=== PATIENT | female | born 1985 | race Caucasian/White ===

== ENCOUNTER 2016-09-19 17:06 | Emergency (ER) | payer OTHER ==
[~2016-09-19] VITALS: Ht 154.9 cm; Wt 104.0 kg
[~2016-09-19 17:06] MED LIST: ALBU17AE12
[2016-09-19 17:08] VITALS: Ht 154.9 cm; Wt 104.0 kg
--- NOTE | 2016-09-19 18:45 | ERD ---
ER Documentation Chief Complaint Date/Time DATE: 09/19/16 TIME: 18:38 Chief Complaint FEELING PALPITATIONS ON AND OFF X 1 WEEK , 32 WEEKS PREG HPI This pleasant 30-year-old female presents to emergency department with assessment for assessment of feeling her heart racing intermittently on and off for the last week. Patient is 32 weeks , -00. Reports that she has told her INDUSTRY SEGMENT SPECIALIST about symptoms was instructed to come to emergency department. Patient last felt palpitations while sitting in exam room. Patient reports that palpitations occur anytime of the day or night with or without activity. She reports intermittent dizziness, shortness of breath, denies chest pain. Patient's current vital signs are stable with a heart rate of 103, blood pressure 117/68 and respirations 18 she is satting 97% on room air. Patient's family history for coronary artery disease include grandmother AMI with age over 60, both mother and grandmother diabetes mellitus. Denies history of gestational diabetes herself thyroid disease. Patient reports very limited caffeine, states she was drinking "[employer] green peas" she quit drinking teas 2 weeks ago. She is on no routine medication other than vitamins. Patient reports no change in baby kick count. Patient reports no vaginal bleeding, vaginal discharge, or abdominal discomfort. She is alert oriented in no acute distress while sitting in exam room with nurse practitioner. ROS All systems reviewed and are negative except as per history of present illness. Medications Home Meds Reported Medications Multivit/Min/Fol Ac/Iron/Pren* ( S*) 1 Tab Tab, 1 TAB PO DAILY, TAB 09/19/16 Discontinued Reported Medications Albuterol (Proventil) 17 Gm Aerosol 08/03/09 Allergies Allergies: Coded Allergies: No Known Allergy (Verified , 09/19/16) PMhx/Soc History of Surgery: Yes (LEEP PROCEDURE FOR CERVICAL CANCER) Anesthesia Reaction: No Hx Neurological Disorder: No Hx Respiratory Disorders: Yes (ASTHMA) Hx Cardiac Disorders: No Hx Psychiatric Problems: No Hx Miscellaneous Medical Probl: No Hx Alcohol Use: No Hx Substance Use: No Hx Tobacco Use: No Smoking Status: Never smoker Physical Exam Vitals Vital Signs Date Time Temp Pulse Resp B/P Pulse Ox O2 Delivery O2 Flow Rate FiO2 09/19/16 17:08 98.1 103 18 117/68 97 Vitals stable, triage notes reviewed Physical Exam Const: No acute distress Head: Atraumatic Eyes: Normal Conjunctiva, PERRLA, EOMI ENT: Normal External Ears, Nose and Mouth. Neck: Full range of motion.. Thyroid midline, no nodules, no JVD Resp: Chest rises and falls symmetrically, clear to auscultation bilaterally no rales wheezes or rhonchi with forced expiration Cardio: Sinus tachycardia auscultated at a rate of 110. S1-S2, no S3-S4, no murmur Abd: Gravidas abdomen Skin: Capillary refill brisk less than 2 second Back: Ext: Neur: Awake and alert Psych: Normal Mood and Affect Result Diagram: 09/19/16 1845 09/19/16 1845 Results 24 hrs Laboratory Tests Test 09/19/16 18:45 White Blood Count 13.110^3/ul Red Blood Count 4.2010^6/ul Hemoglobin 11.7g/dl Hematocrit 35.7% Mean Corpuscular Volume 85.0fl Mean Corpuscular Hemoglobin 27.9pg Mean Corpuscular Hemoglobin Concent 32.8g/dl Red Cell Distribution Width 13.8% Platelet Count 76303^3/UL Mean Platelet Volume 10.9fl Neutrophils % 73.0% Lymphocytes % 15.2% Monocytes % 7.4% Eosinophils % 3.8% Basophils % 0.3% Nucleated Red Blood Cells % 0.0/100WBC Neutrophils # 9.610^3/ul Lymphocytes # 2.010^3/ul Monocytes # 1.010^3/ul Eosinophils # 0.510^3/ul Basophils # 0.010^3/ul Nucleated Red Blood Cells # 0.010^3/ul Prothrombin Time 12.6Sec Prothrombin Time Ratio 1.0 INR International Normalized Ratio 0.94 Activated Partial Thromboplast Time 26.3Sec Sodium Level 133mmol/L Potassium Level 4.2mmol/L Chloride Level 107mmol/L Carbon Dioxide Level 19mmol/L Anion Gap 11 Blood Urea Nitrogen 10mg/dl Creatinine 0.45mg/dl Glucose Level 117mg/dl Calcium Level 8.7mg/dl Magnesium Level 1.7mg/dl Troponin I < 0.012ng/ml Thyroid Stimulating Hormone (TSH) 1.210MIU/L Free Thyroxine Index 2.36ug/ml Thyroxine (T4) 12.1ug/dl Triiodothyronine (T3) Uptake 19.5% Interpretation text CBC shows no evidence of hemorrhage or WBCs are 13.1 Chemistry shows no evidence of significant renal insufficiency, sodium low at 133 Liver function tests shows no evidence of acute biliary or hepatic dysfunction Coagulation study showed no concerning coagulpathy Thyroid panel normal no evidence of hyper or hypothyroidism Magnesium normal no hypo-magnesium Cardiac biomarkers show no evidence of acute myocardial injury or coronary ischemia Procedures/MDM EKG read by me: At 1715 Rate/Rhythm: Regular rate and ventricular rhythm at 98 bpm Intervals: Normal Impression: No evidence of ischemia or arrhythmia Repeat EKG was done at 1929 EKG read by me: Rate/Rhythm: Regular rate and ventricular rhythm of 100 bpm Intervals: Normal Impression: No evidence of ischemia or arrhythmia This pleasant 30-year-old 32 weeks female presenting to emergency department today with reports of palpitations, shortness of breath with palpitations intermittently for the last week. 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 Patient is experiencing palpitations while in emergency department. Serial EKGs shows sinus rhythm at ventricular rates 98 bpm and 100 bpm. Patient denies chest pain or shortness of breath at this time is satting 97-98% on room air. Laboratory testing includes CBC with elevated WBCs, electrolytes with low sodium at 133. TSH, and troponin both are normal. Case discussed with supervising physician , Patient will be transferred to labor and delivery for 4 hours of heart tone monitoring. Labor and delivery called, spoke to the charge nurse Priscila, asked to discharge patient, patient will be readmitted in labor and delivery. I feel patient is appropriate for admission to labor and delivery for heart tone monitoring after safely evaluating palpitations. Patient can follow- up with her primary care provider for any further evaluation of palpitations. Patient has no evidence of cardiac arrhythmia, electrolyte dysfunction, or thyroid disease. Patient is satting 98% on room air without chest pain low suspicion for pulmonary embolism, pulmonary CT is not indicated at this time. I feel the patient is stable for discharge at this time and readmission to labor and delivery I have discussed results, examination findings, the treatment plan with the patient and family present prior to discharge. Indications for emergent reevaluation, side effects of medication were also discussed. All questions were answered. Patient verbalizes understanding and agrees with plan of care. Departure Diagnosis: Primary Impression: Palpitations Additional Impression: 32 weeks gestation of Condition: Good Patient Instructions: Palpitations Referrals: [facility] Comments Thank you for for coming to [facility] for your care today. Please ask your nurse or provider if you have questions about your care today and do not leave until all your questions have been answered. Please use any medications given as directed and follow-up with your doctor (or the doctor you were referred to) in the next 2-3 days. If you do not have a primary care doctor you may follow up at the [facility] (listed below). You may also use motrin and tylenol as needed for fever and/or pain unless instructed otherwise by your provider or nurse. Indications for more urgent follow-up have been discussed, but you may return to the Emergency Department at ANY time for any worrisome or worsening symptoms. If you have abdominal pain, please know that no test or exam you received is perfect and you should follow up within 8 hours for continued pain. If you had any imaging studies today, such as an X-Ray or CT Scan, these studies will be reviewed later by a radiologist. You will be called if there are important findings that were not identified today, so make sure the contact information you provided at registration is correct. If you received any narcotic pain control medicine today, such as Vicodin, Morphine or Dilaudid, your coordination and judgment may be affected for a number of hours. Please do not drive or operate heavy machinery, and you may want someone to assist you at home. If you were given a prescription for narcotic medication, be aware that it is very addictive- use sparingly and only if necessary. GISELLA LAZO Sep 19, 2016 18:45
[2016-09-19 19:08] LABS: ADD SCAN DIFF NO
[2016-09-19 19:10] LABS: BASOPHILS % 0.3 % (0.0-2.0); EOSINOPHILS # 0.5 10^3/ul (0.0-0.5); EOSINOPHILS % 3.8 % (0.0-7.0); HEMATOCRIT 35.7 % (37.0-47.0); HEMOGLOBIN 11.7 g/dl (12.0-16.0); LYMPHOCYTES % 15.2 % (15.0-51.0); MEAN CORPUSCULAR HEMOGLOBIN 27.9 pg (29.0-33.0); MEAN CORPUSCULAR HGB CONC 32.8 g/dl (32.0-37.0); MEAN PLATELET VOLUME 10.9 fl (7.4-10.4); MONOCYTES % 7.4 % (0.0-11.0); NEUTROPHIL # 9.6 10^3/ul (1.6-7.5); PLATELET COUNT 310 10^3/UL (140-415); RED CELL DISTRIBUTION WIDTH 13.8 % (11.5-14.5); WHITE BLOOD COUNT 13.1 10^3/ul (4.8-10.8)
[2016-09-19 19:20] LABS: INR 0.94; PROTIME 12.6 Sec (12.2-14.2)
[2016-09-19 19:21] LABS: PARTIAL THROMBOPLASTIN TIME 26.3 Sec (25.0-35.0)
[2016-09-19 19:31] LABS: ANION GAP 11 (8-16); BLOOD UREA NITROGEN 10 mg/dl (7-20); CALCIUM 8.7 mg/dl (8.4-10.2); CARBON DIOXIDE 19 mmol/L (21-31); CHLORIDE 107 mmol/L (97-110); CREATININE 0.45 mg/dl (0.44-1.00); GLUCOSE 117 mg/dl (70-220); MAGNESIUM 1.7 mg/dl (1.7-2.5); POTASSIUM 4.2 mmol/L (3.5-5.1); SODIUM 133 mmol/L (135-144)
[2016-09-19 19:45] LABS: TROPONIN-I < 0.012 ng/ml (0.00-0.12)
[2016-09-19 19:47] LABS: T3 UPTAKE 19.5 % (23.5-40.5)
[2016-09-19] MEDS ORDERED: PRENAT PO (21:26)
== END 2016-09-19 20:57 | disposition home or self-care (01) ==
LOC: FTE 17:06
DX: O99.89 Other specified diseases and conditions complicating pregnancy, childbirth and the puerperium (principal); R00.2 Palpitations; O99.513 Diseases of the respiratory system complicating pregnancy, third trimester; J45.909 Unspecified asthma, uncomplicated; R06.02 Shortness of breath; Z3A.32 32 weeks gestation of pregnancy
CPT/HCPCS: 36415; 80048; 83735; 84436; 84443; 84479; 84484; 85025; 85610; 85730; 93005; Z7502

== ENCOUNTER 2016-09-19 21:07 | Outpatient (CLI) | payer OTHER ==
[~2016-09-19] VITALS: Ht 154.9 cm; Wt 104.4 kg
[2016-09-19 21:23] VITALS: Ht 154.9 cm; Wt 104.4 kg
[2016-09-19 21:24] VITALS: BP 114/68; PULSE 93; RESP 17
[2016-09-19] MEDS ORDERED: PRENAT PO (21:26)
--- NOTE | 2016-09-19 22:18 | RADRPT ---
PROCEDURE: Biophysical profile. CLINICAL INDICATION: Pelvic pain. TECHNIQUE: Multiple sonographic images of the pelvis were obtained with transabdominal technique. COMPARISON: No prior studies are available for comparison. FINDINGS: There is a single living intrauterine gestation with the fetus in a vertex position. The placenta i s anterior in location, grade II. heart tones of 152 beats per minute are identified. There i s normal amniotic fluid volume with an SONYA of 11.9 cm. breathing movements = 2 Gross body movements = 2 tone = 2 Qualitative AFV = 2 IMPRESSION: Biophysical profile 8 out of 8. .Les Baron MD, MD Date Time Electronically viewed and signed by .Les Baron MD, MD on 09/19/2016 22:17 .T/
--- NOTE | 2016-09-19 23:11 | TRIAGE ---
OB Triage Datetime Report Generated by CPN: 09/19/2016 23:11 Datetime: 09/19/2016 22:35 Stage of : OB Triage Labor Evaluation Frequency: x0 Monitor Mode: External Duration (sec)2399: x0 Resting Tone Mccalla: Relaxed Heart Rate FHR Baseline Rate: 135 Monitor Mode: External US FHR Baseline Changes: No Baseline Change Variability: Moderate 6-25 bpm Accelerations: 15X15 Decelerations: None Category: Category I Pain Assessment Pain Scale: 0 Pain Presence: None/Denies Pain Type: N/A Pain Goal: 0 Datetime: 09/19/2016 21:45 Stage of : OB Triage Labor Evaluation Frequency: X0 Monitor Mode: External Duration (sec)2399: X0 Resting Tone Mccalla: Relaxed Heart Rate FHR Baseline Rate: 135 Monitor Mode: External US Variability: Moderate 6-25 bpm Accelerations: 15X15 Decelerations: None Category: Category I Pain Assessment Pain Scale: 0 Pain Presence: None/Denies Pain Type: N/A Pain Goal: 0 Datetime: 09/19/2016 21:35 Stage of : OB Triage Datetime: 09/19/2016 21:17 Vaginal Exam Membrane Status: Intact Datetime: 09/19/2016 21:16 Stage of : OB Triage Maternal Assessment Level of Consciousness: Fully Conscious Headache: Denies Blurred Vision: No Respiratory Effort: Unlabored Nausea/Vomiting: Denies RUQ Epigastric Pain: Denies Facial Edema: None Monitor Mode: External Resting Tone Mccalla: Relaxed Contraction Comments: PLACED Monitor Mode: External US Comments: FHR 130'S Pain Assessment Pain Scale: 0 Pain Presence: None/Denies Pain Type: N/A Pain Goal: 0 Datetime: 09/19/2016 21:13 EGA: 32.3 Datetime: 09/19/2016 21:00 Time of Arrival: 09/19/2016 21:00 Arrived By: Wheelchair Arrived From: Emergency Dept Chief Complaint: PALPITATIONS OVER 1 WEEK PT STATES FEELING CRAMPING @1730 Movement: Present Contractions: Denies/Absent Rupture of Membranes: Denies Vaginal Bleeding: None Vaginal Discharge: Denies Abdominal Trauma: Not Applicable Patient Complaints: Other Additional Patient Complaints: H/O OF PTD @35WEEKS Time Provider Notified: 09/19/2016 21:35 Provider Notified: JANAY DEAL Initial Plan: BPP, NST
--- NOTE | 2016-09-19 23:36 | PN ---
Date/Time of Note Date/Time of Note DATE: 09/19/16 TIME: 23:29 OB Subjective Subjective Subjective hx of palpitations for 1week at present no feeling of palpitations hx fo asthma no smoking or drinking no caffeine ingestion no med beside vitamin no chest pain or sob or dizziness brought from ER after evaluation for palpitation for ck for OBaspect OB Objective Objective Objective O2 sat 98 HR 93 EFM reactive NST BPP 01/16 OB Assessment/Plan Reason for admission: other (palpitaation) Other Assessment: IUP 32w with Palpitation Other plan: d/s home f/u at her pmd RTH prJANAY Mcleod MD Sep 19, 2016 23:36
== END 2016-09-19 23:07 | disposition home or self-care (01) ==
LOC: OBT 21:07 → L-D 21:07 → OBT 23:07
PROVIDERS: ATTEND Obstetrics & Gynecology
DX: O26.893 Other specified pregnancy related conditions, third trimester (principal); R00.2 Palpitations; Z3A.32 32 weeks gestation of pregnancy
CPT/HCPCS: 76818; Z7500; G0463

== ENCOUNTER 2016-11-02 15:14 | Outpatient (CLI) | payer OTHER ==
[~2016-11-02] VITALS: Ht 154.9 cm; Wt 106.7 kg
[~2016-11-02 15:14] MED LIST changes: -ALBU17AE12; +PRENAT PO
[2016-11-02 16:41] VITALS: Ht 154.9 cm; Wt 106.7 kg
--- NOTE | 2016-11-02 16:49 | QN ---
Documentation Comment 31 years old 3 para2 EDC November 14 referred from the clinic to to the hospital following vaginal bleeding after pelvic examination for ultrasound evaluation of placental location ,and biophysical plan pending imaging report ROLANDA HOANG MD November 02, 2016 16:49
--- NOTE | 2016-11-02 17:18 | RADRPT ---
PROCEDURE: US OB. CLINICAL INDICATION: Vaginal bleeding TECHNIQUE: Pelvic ultrasound performed for biophysical profile. COMPARISON: 09/19/2016 FINDINGS: Single intrauterine gestation present with heart rate at 129 beats per minute. Presentation is ceph alic. Placenta is anterior, grade II. Biophysical profile score is 8/8 (breathing=2, movement=2, t one =2, fluid volume=2). Amniotic fluid volume is within normal limits, with SONYA = 10.43 cm. RPTAT:HJJR IMPRESSION: Biophysical profile score 8/8. Amniotic fluid index is 10.43 cm, previously 11.93 cm on the study of 09/19/2016. Physician Wen Date Time Electronically viewed and signed by Physician Wen on 11/02/2016 17:17 /
--- NOTE | 2016-11-02 17:50 | RADRPT ---
PROCEDURE: Obstetrical ultrasound CLINICAL INDICATION: BLEEDING TECHNIQUE: Multiple sonographic images of the pelvis were obtained. The images were reviewed on a PACS workstation. COMPARISON: Obstetrical ultrasound from 09/19/2016 FINDINGS: The cervix is not well visualized. There is a single viable intrauterine gestation. Cardiac activity is present with 124 beats per minute. There is a vertex presentation. The placenta is anterior. There is no evidence for an abruption or placenta previa. There is a subjectively normal amount of amniotic fluid. Measurements were made in order to determine age. The results are as follows (cm): BPD =8.96 HC =32.30 AC =33.89 FL =7.06 Estimated gestational age by ultrasound of approximately 36 weeks, 5 days. The estimated date of delivery by ultrasound is 11/25/2016. Estimated gestational age by LMP of approximately 38 weeks, 2 days. The estimated date of delivery by LMP is 11/14/2016. EFW = 3113 grams (33rd percentile) IMPRESSION: Single viable intrauterine gestation of approximately 36 weeks, 5 days . The estimated date of delivery is 11/25/2016 . Dating by ultrasound is within 11 days of dating by LMP. Cephalic presentation. Estimated weight is in the 33rd percentile. Anterior placenta without evidence of an abruption or placenta previa. RPTAT: EE Physician Bisi Date Time Electronically viewed and signed by Physician Bisi on 11/02/2016 17:49 /
--- NOTE | 2016-11-02 18:18 | QN ---
Documentation Comment 38 and 5 7 days had some mild vaginal bleeding post pelvic examination ultrasound evaluation for placental location, placenta anterior no previa or low -lying biophysical profile 8 out of 8 patient was discharged home with the instructions for labor or any bleeding advised to return to the hospital otherwise follow with the [facility] on November 03, 2016 ROLANDA HOANG MD November 02, 2016 18:18
--- NOTE | 2016-11-02 18:19 | TRIAGE ---
OB Triage Datetime Report Generated by CPN: 11/02/2016 18:19 Datetime: 11/02/2016 17:51 Labor Evaluation Frequency: 0 Monitor Mode: External Contraction Comments: DENIES FEELING ANY UC'S Heart Rate FHR Baseline Rate: 130 Monitor Mode: External US FHR Baseline Changes: No Baseline Change Variability: Moderate 6-25 bpm Accelerations: 15X15 Decelerations: None Category: Category I Datetime: 11/02/2016 16:11 Stage of : OB Triage Assessment Type: Triage Maternal Assessment Level of Consciousness: Fully Conscious DTR's/Clonus: DTRs 2+; No Clonus Headache: Denies Blurred Vision: No Respiratory Effort: Unlabored; Regular Rhythm; Equal Expansion Breath Sounds, Left: Clear and Equal Breath Sounds, Right: Clear and Equal Nausea/Vomiting: Denies RUQ Epigastric Pain: Denies Lower Extremities Edema: None Degree: None Upper Extremities Edema: None Degree: None Facial Edema: None Temperature Route: Axillary Fall Risk Assessment History of Falling: (0) No Secondary Diagnosis: (0) No Ambulatory Aid: (0) Bedrest/Nurse Assist IV Therapy: (0) No Gait: (0) Normal/Bedrest/Immobile Mental Status: (0) Oriented to Own Ability Fall Score: 0 Fall Risk Score Definition: No Risk: No action required Datetime: 11/02/2016 15:10 Time of Arrival: 11/02/2016 15:10 EGA: 38.5 Arrived By: Ambulatory Arrived From: Office Chief Complaint: BLEEDING AFTER CHECKED BY DR HOANG IN THE CLINIC Movement: Present Contractions: Denies/Absent Rupture of Membranes: Denies Vaginal Bleeding: None Vaginal Discharge: Present Recent Sexual Intercouse: Denies Abdominal Trauma: Not Applicable Patient Complaints: Other Time Provider Notified: 11/02/2016 16:15 Provider Notified: HARRY Initial Plan: BPP, EFW, PLCENTA LOCATION, POSITION, EFW Datetime: 09/19/2016 21:13 EGA: 32.3
== END 2016-11-02 18:30 | disposition home or self-care (01) ==
LOC: L-D 15:14 → OBT 15:14 → L-D 15:21 → OBT 18:30
PROVIDERS: ATTEND Obstetrics & Gynecology
DX: O46.93 Antepartum hemorrhage, unspecified, third trimester (principal); Z3A.38 38 weeks gestation of pregnancy
CPT/HCPCS: 76815; 76818; Z7500; G0463

== ENCOUNTER 2016-11-10 18:22 | Inpatient (IN) | payer OTHER ==
[~2016-11-10] VITALS: Ht 154.9 cm; Wt 106.4 kg
[2016-11-10 18:33] VITALS: Ht 154.9 cm; Wt 106.4 kg
[2016-11-10 18:51] VITALS: BP 124/60; PULSE 115; RESP 18
[2016-11-10 19:49] LABS: ADD SCAN DIFF NO
[2016-11-10] MEDS: LACTATED RINGER'S 1,000 ML IV SCH ×2 (19:49→23:38)
[2016-11-10] MEDS ORDERED: OXYTOCIN 30 UNITS/LR 500 ML IV SCH ×3 (20:00)
[2016-11-10] MEDS ORDERED: LIDOCAINE 1% (MPF) 30 ML INJ INJ PRN (20:00)
[2016-11-10] MEDS ORDERED: BUTORPHANOL 2 MG INJ IV PRN (20:00)
[2016-11-10] MEDS ORDERED: METHYLERGONOVINE 0.2 MG INJ IM PRN (20:00)
[2016-11-10] MEDS ORDERED: LACTATED RINGER'S 1,000 ML IV PRN (20:00)
[2016-11-10] MEDS ORDERED: OXYTOCIN 30 UNITS/LR 500 ML IV PRN (20:00)
[2016-11-10] MEDS ORDERED: IBUPROFEN 600 MG TAB PO PRN (20:00)
[2016-11-10] MEDS ORDERED: MISOPROSTOL 200 MCG TAB PR PRN (20:00)
[2016-11-10] MEDS ORDERED: CARBOPROST 250 MCG INJ IM PRN (20:00)
[2016-11-10 20:04] LABS: BASOPHIL # 0.1 10^3/ul (0.0-0.1); BASOPHILS % 0.4 % (0.0-2.0); EOSINOPHILS # 0.2 10^3/ul (0.0-0.5); EOSINOPHILS % 1.4 % (0.0-7.0); HEMATOCRIT 34.7 % (37.0-47.0); HEMOGLOBIN 11.8 g/dl (12.0-16.0); LYMPHOCYTES # 1.8 10^3/ul (0.8-2.9); MEAN CORPUSCULAR HEMOGLOBIN 28.2 pg (29.0-33.0); MEAN PLATELET VOLUME 11.8 fl (7.4-10.4); MONOCYTE # 0.8 10^3/ul (0.3-0.9); MONOCYTES % 6.8 % (0.0-11.0); NEUTROPHILS % 76.1 % (39.0-77.0); PLATELET COUNT 291 10^3/UL (140-415); RED BLOOD COUNT 4.18 10^6/ul (4.20-5.40); RED CELL DISTRIBUTION WIDTH 13.7 % (11.5-14.5); WHITE BLOOD COUNT 11.8 10^3/ul (4.8-10.8)
[2016-11-10 20:05] LABS: INR 0.97; PROTIME 12.9 Sec (12.2-14.2)
[2016-11-10] MEDS ORDERED: FENTAnyl 2MCG/ML-ROPIV 0.2% 100 ML ONE (22:55)
[2016-11-11] MEDS ORDERED: OXYTOCIN 30 UNITS/LR 500 ML IV SCH (00:49)
[2016-11-11] MEDS ORDERED: LANOLIN 7 GM TUBE TOP PRN (01:00)
[2016-11-11] MEDS ORDERED: OXYTOCIN 30 UNITS/LR 500 ML IV PRN (01:00)
[2016-11-11] MEDS ORDERED: OXYCODONE/ASPIRIN (4.88/325) TAB PO PRN (01:00)
[2016-11-11] MEDS ORDERED: MISOPROSTOL 200 MCG TAB PR PRN (01:00)
[2016-11-11] MEDS ORDERED: METHYLERGONOVINE 0.2 MG INJ IM PRN (01:00)
[2016-11-11] MEDS ORDERED: CARBOPROST 250 MCG INJ IM PRN (01:00)
--- NOTE | 2016-11-11 01:03 | LDN ---
Date/Time of Note Date/Time of Note DATE: 11/11/16 TIME: 01:00 Delivery Summary of a viable baby boy weighing 2995 grams or 6# 10oz, 19" long and with Apgars of 9/9. Weeks of Gestation 39w 6d Placenta Delivered: Spontaneously Meconium: none Episiotomy: No Perineal laceration: 0 Anesthesia type: Epidural Estimated blood loss: 200 Sponge & Needle done & correct: Yes All needle counts correct: Yes Any foreign bodies felt in the: No (vagina) Problems: Infant Delivery Information Sex Infant Sex: male Apgars 1 Minute: 9 5 Minute: 9 Suctioning Nose & mouth suctioned at amber: Yes Delee suction performed: No Umbilical Cord Umbilical cord with: 3 Vessels Cord presentations: nuchal cord Nuchal cord present X: 1 Cord Blood was obtained: Yes Mother & Baby Disposition Disposition Mom & Baby to Maternity; Good: Yes Baby to NICU: No JESSICA ARBOLEDA MD Nov 11, 2016 01:03
--- NOTE | 2016-11-11 01:07 | HP ---
Date/Time of Note Date/Time of Note DATE: 11/11/16 TIME: 01:03 OB - History Hx of Present Free Text/Dictation 31 y.o. with an IUP at 39w 6days came in labor with an exam of 80%/ 6-7 cm dilated. Chief Complaint: Labor Estimated Due Date: Nov 11, 2016 : 3 Para: 2 Care: Good Care Ultrasounds: Normal mid trimester US Obstetrical Complications: None Past Family/Social History * Past Medical, Surgical, Family and Obstetric Histories reviewed from chart. Blood Type: O+ Rubella: immune RPR/VDRL: Negative GBS Status: Negative HBsAG: Negative OB Admission Exam Vital Signs Vital Signs Vital Signs Date Time Temp Pulse Resp B/P Pulse Ox O2 Delivery O2 Flow Rate FiO2 11/10/16 18:51 98.0 115 18 124/60 Room Air Physical Exam HEENT: WNL Heart: Rhythm Normal Abdomen: WNL Extremities: Normal Reflexes: Normal Cervical Dilatation: 6cm Effacement: 75% Station: -2 Membranes: Intact Amniotic Fluid: Clear Heart Rate: 120's Accelerations: Accelerations Present Decelerations: No Decelerations Varibility: Moderate Contractions on Admission: < 5 Minutes Apart Last 72 hours Lab Results CBC & BMP 11/10/16 19:25 OB Assessment/Plan Reason for admission: active labor Plan: Expectant Management JESSICA ARBOLEDA MD Nov 11, 2016 01:07
[2016-11-11 03:20] VITALS: BP 131/65; PULSE 82; RESP 20
--- NOTE | 2016-11-11 04:06 | DELSUM ---
Delivery Summary A-C Datetime Report Generated by CPN: 11/11/2016 04:06 DELIVERY PERSONNEL Legal Support Analyst: JohnnyJennifer MATERNAL INFORMATION Delivery Anesthesia: Epidural Medications in Delivery: LR WITH 30 UNITS OF PITOCIN Estimated Blood Loss (ml): 200 Placenta Cultured: No Maternal Complications: None LABOR SUMMARY EDC: 11/11/2016 00:00 No. Babies in Womb: 1 Attempted: No Labor Anesthesia: Epidural LABOR INFORMATION Reason for Induction: Not Applicable Onset of Labor: 11/10/2016 08:30 Complete Dilatation: 11/11/2016 00:18 Oxytocin: Augmentation Group B Beta Strep: Negative Antibiotics # of Doses: X0 Steroids Given: None Reason Steroids Not Administered: Not Applicable MEMBRANES Membranes Rupture Method: Spontaneous Rupture of Membranes: 11/10/2016 23:47 Length of Rupture (hr): 0.67 Amniotic Fluid Color: Clear Amniotic Fluid Amount: Moderate Amniotic Fluid Odor: None STAGES OF LABOR Stage 1 hr: 15 Stage 1 min: 48 Stage 2 hr: 0 Stage 2 min: 9 Stage 3 hr: 0 Stage 3 min: 9 Total Time in Labor hr: 16 Total Time in Labor min: 6 VAGINAL DELIVERY Episiotomy: None Laceration Extension: N/A Laceration Type: None Laceration Repair: Not Applicable Initial Vag Sponge Count: 20 Final Vag Sponge Count: 20 Initial Vag Sharps Count: 1 Final Vag Sharps Count: 1 Sponge Count Correct: Yes Sharps Count Correct: Yes BABY A INFORMATION Delivery Date/Time: 11/11/2016 00:27 Method of Delivery: Vaginal Born in Route : No : N/A Forceps: N/A Vacuum Extraction: N/A Shoulder Dystocia : N/A SHOULDER DYSTOCIA BABY A Delivery Date/Time: 11/11/2016 00:27 PRESENTATION/POSITION BABY A Presentation: Cephalic Presentation: Cephalic Presentation: Cephalic Cephalic Presentation: Vertex Vertex Position: Left Occipital Anterior Breech Presentation: N/A PLACENTA INFORMATION BABY A Placenta Delivery Time : 11/11/2016 00:36 Placenta Method of Delivery: Spontaneous Placenta Status: Delivered SCORES BABY A Heart Rate 1 min: >100 bpm Resp Effort 1 min: Good Cry Reflex Irritability 1 min: Cough/Sneeze/Pulls Away Muscle Tone 1 min: Active Motion Color 1 min: Body Munson, Extremit Blue Resuscitation Effort 1 min: Tactile Stimulation SCORE 1 MIN: 9 Heart Rate 5 min: >100 bpm Resp Effort 5 min: Good Cry Reflex Irritability 5 min: Cough/Sneeze/Pulls Away Muscle Tone 5 min: Active Motion Color 5 min: Body Munson, Extremit Blue Resuscitation Effort 5 min: Tactile Stimulation SCORE 5 MIN: 9 INFANT INFORMATION BABY A Gestational Age at Delivery: 39.6 Gestational Status: Full Term- 39- 40.6 Weeks Outcome : Liveborn Infant Condition : Stable Sex: Male IDENTIFICATION/MEDS BABY A ID Band Number: [id number] ID Band Location: Right Leg; Left Arm Sensor Applied: Yes Sensor Number: [id number] Sensor Location : Cord Clamp Vitamin K Given : Not Given Erythromycin Given: Not Given WEIGHT/LENGTH BABY A Infant Birthweight (gm): 2995 Weight (lb): 6 Weight (oz): 10 Infant Length (in): 19.00 Length (cm): 48.26 CORD INFORMATION BABY A No. Cord Vessels: 3 Nuchal Cord : Around Neck x1, Loose Cord Blood Taken: No Infant Suction: Mouth; Nose ASSESSMENT BABY A Complications: None Physical Findings at Delivery: Within Normal Limits Infant Respirations: Appears Normal Dye Can Operator/ALS Called : No Infant Care By: Lauro WEISS Transferred To: Remains with Mother
[2016-11-11] MEDS: LACTATED RINGER'S 1,000 ML IV* SCH ×3 (05:09→16:49)
[2016-11-11] MEDS: IBUPROFEN 600 MG TAB PO SCH ×3 (05:10→17:43)
[2016-11-11 08:00] VITALS: BP 119/65; PULSE 90; RESP 20
[2016-11-11 12:00] VITALS: BP 127/75; PULSE 80; RESP 18
[2016-11-11 16:00] VITALS: BP_SYST 62; PULSE 94; RESP 18
[2016-11-11 20:00] VITALS: BP 127/82; PULSE 94; RESP 18
[2016-11-12] MEDS: IBUPROFEN 600 MG TAB PO SCH ×4 (00:23→18:10)
[2016-11-12] MEDS: LACTATED RINGER'S 1,000 ML IV* SCH ×3 (00:49→16:49)
[2016-11-12 04:05] VITALS: BP 118/80; PULSE 78
[2016-11-12 08:00] VITALS: BP 124/78; PULSE 80; RESP 18
[2016-11-12 08:09] LABS: ADD SCAN DIFF NO
[2016-11-12 08:13] LABS: BASOPHILS % 0.4 % (0.0-2.0); EOSINOPHILS # 0.3 10^3/ul (0.0-0.5); EOSINOPHILS % 2.8 % (0.0-7.0); HEMATOCRIT 31.2 % (37.0-47.0); HEMOGLOBIN 10.3 g/dl (12.0-16.0); LYMPHOCYTES # 2.6 10^3/ul (0.8-2.9); LYMPHOCYTES % 25.5 % (15.0-51.0); MEAN CORPUSCULAR HEMOGLOBIN 28.1 pg (29.0-33.0); MEAN CORPUSCULAR VOLUME 85.2 fl (82.0-101.0); MEAN PLATELET VOLUME 11.5 fl (7.4-10.4); MONOCYTE # 0.7 10^3/ul (0.3-0.9); MONOCYTES % 6.8 % (0.0-11.0); NEUTROPHIL # 6.5 10^3/ul (1.6-7.5); NEUTROPHILS % 64.1 % (39.0-77.0); PLATELET COUNT 230 10^3/UL (140-415); RED BLOOD COUNT 3.66 10^6/ul (4.20-5.40); RED CELL DISTRIBUTION WIDTH 14.1 % (11.5-14.5); WHITE BLOOD COUNT 10.1 10^3/ul (4.8-10.8)
--- NOTE | 2016-11-12 11:29 | PN ---
Date/Time of Note Date/Time of Note DATE: 11/12/16 TIME: 11:28 OB Subjective Subjective Subjective Post normal vaginal delivery day 1 Vital signs are stable abdomen soft uterus firm lochia normal extremity normal ambulation encouraged diet as tolerated Laboratory Tests Test 11/12/16 07:45 White Blood Count 10.110^3/ul Red Blood Count 3.6610^6/ul Hemoglobin 10.3g/dl Hematocrit 31.2% Mean Corpuscular Volume 85.2fl Mean Corpuscular Hemoglobin 28.1pg Mean Corpuscular Hemoglobin Concent 33.0g/dl Red Cell Distribution Width 14.1% Platelet Count 11168^3/UL Mean Platelet Volume 11.5fl Neutrophils % 64.1% Lymphocytes % 25.5% Monocytes % 6.8% Eosinophils % 2.8% Basophils % 0.4% Nucleated Red Blood Cells % 0.0/100WBC Neutrophils # 6.510^3/ul Lymphocytes # 2.610^3/ul Monocytes # 0.710^3/ul Eosinophils # 0.310^3/ul Basophils # 0.010^3/ul Nucleated Red Blood Cells # 0.010^3/ul Current Medications Medications (Trade) Dose Ordered Sig/Anuj Route PRN Reason Start Time Stop Time Status Last Admin Dose Admin Lactated Ringer's 1,000 ml @ 125 mls/hr Q8H IV 11/10/16 19:35 11/11/16 00:56 DC 11/10/16 23:38 Oxytocin/Lactated Ringer's 500 ml @ 0 mls/hr TITRATE IV 11/10/16 20:00 11/11/16 00:56 DC 11/10/16 20:15 Butorphanol Tartrate (Stadol) 2 mg Q2H PRN IV PAIN 11/10/16 20:00 11/11/16 00:56 DC Lidocaine 30 ml 30 ml ONCE PRN INJ EPISIOTOMY/TEARING 11/10/16 20:00 11/11/16 00:56 DC Oxytocin/Lactated Ringer's 500 ml @ 125 mls/hr ONCE -MAY REPEAT X1 IV 11/10/16 20:00 11/11/16 00:56 DC Oxytocin/Lactated Ringer's 500 ml @ 125 mls/hr ONCE IV 11/10/16 20:00 11/11/16 00:56 DC 11/11/16 00:46 Ibuprofen 600 mg 600 mg ONCE PRN PO Mild Pain (Pain Score 1-3) 11/10/16 20:00 11/11/16 00:56 DC Lactated Ringer's 1,000 ml @ 2,000 mls/hr Q30M PRN IV PRE-EPIDURAL BOLUS 11/10/16 20:00 11/11/16 00:56 DC 11/10/16 22:22 Oxytocin/Lactated Ringer's 500 ml @ 0 mls/hr ONCE PRN IV For Hemorrhage Management 11/10/16 20:00 11/11/16 00:56 DC Methylergonovine Maleate (Methergine) 0.2 mg ONCE PRN IM VAGINAL BLEEDING 11/10/16 20:00 11/11/16 00:56 DC Carboprost Tromethamine (Hemabate) 250 mcg ONCE PRN IM VAGINAL BLEEDING 11/10/16 20:00 11/11/16 00:56 DC Misoprostol 1000 mcg 1,000 mcg ONCE PRN AL VAGINAL BLEEDING 11/10/16 20:00 11/11/16 00:56 DC Fentanyl/ Ropivacaine 100 ml @ ud STK-MED ONCE .ROUTE 11/10/16 22:55 11/10/16 22:56 DC Oxytocin/Lactated Ringer's 500 ml @ 125 mls/hr Q4H IV 11/11/16 00:49 11/11/16 04:48 DC Lactated Ringer's (Lr) 1,000 ml @ 125 mls/hr Q8H IV* 11/11/16 00:49 11/11/16 05:09 Ibuprofen (Motrin) 600 mg Q6 PO 11/11/16 06:00 11/12/16 06:32 Oxycodone/Aspirin (Percodan) 1 tab Q3H PRN PO PAIN LEVEL 1-5 11/11/16 01:00 11/11/16 20:24 Lanolin ([id number]) 1 applic BEDSIDE MEDICATION PRN TOP BEDSIDE FOR LAKSHMI TO NIPPLES 11/11/16 01:00 11/11/16 20:24 Diphtheria/ Tetanus/Acell Pertussis 0.5 ml 0.5 ml ONCE ONCE IM* 11/13/16 09:00 11/13/16 09:01 Oxytocin/Lactated Ringer's 500 ml @ 0 mls/hr ONCE PRN IV For Hemorrhage Management 11/11/16 01:00 Methylergonovine Maleate (Methergine) 0.2 mg ONCE PRN IM VAGINAL BLEEDING 11/11/16 01:00 Carboprost Tromethamine (Hemabate) 250 mcg ONCE PRN IM VAGINAL BLEEDING 11/11/16 01:00 Misoprostol (Cytotec) 1,000 mcg ONCE PRN AL VAGINAL BLEEDING 11/11/16 01:00 ROLANDA HOANG MD Nov 12, 2016 11:29
[2016-11-12 16:00] VITALS: BP 117/74; RESP 18
[2016-11-12 20:00] VITALS: BP 122/75; PULSE 90; RESP 18
[2016-11-13] MEDS: LACTATED RINGER'S 1,000 ML IV* SCH ×2 (00:49→08:49)
[2016-11-13] MEDS: IBUPROFEN 600 MG TAB PO SCH ×3 (04:19→12:03)
[2016-11-13 08:00] VITALS: BP 110/67; PULSE 84; RESP 18
[2016-11-13] MEDS ORDERED: DIPHTH/TET/ACEL PERTUSS (ADULT) 0.5 ML VIAL IM* ONE (09:00)
--- NOTE | 2016-11-13 09:33 | PD.PPDC ---
EVENTS ASSISTANT Discharge Instruction Condition Patient Condition: Good Diet Diet: Resume Regular Diet Activity/Restrictions Activity: Normal Activity May Shower Restrictions: No Exercising No Lifting No Driving No Sexual Activity Nothing in the Vagina No [place] No Tampons, douche Follow-up Follow-up with Physician: 2, Week/Weeks Provider Information: instructions given recommended to make appointment to be seen at the clinic in 2 weeks Return to clinic for [employer] Instructions: Fever greater than 101 Chills Worsening abdominal pain Excessive Vaginal Bleeding More than 2 pads per hour Unable to tolerate diet OB Instructions: Breast Tenderness Depression Blurried Vision Headache ROLANDA HOANG MD Nov 13, 2016 09:33
--- NOTE | 2016-11-13 09:37 | DS ---
Date/Time of Note Date/Time of Note DATE: 11/13/16 TIME: 09:35 Discharge Summary Admission/Discharge Info Admit Date/Time Nov 10, 2016 at 19:16 Discharge Date/Time November 13, 2016 at 9:30 AM Final Diagnosis Post normal vaginal delivery day 2 Patient Condition: Good Procedures Normal spontaneous vaginal delivery Hx of Present Illness Term Hospital Course Satisfactory uneventful Home Meds Reported Medications Multivit/Min/Fol Ac/Iron/Pren* ( S*) 1 Tab Tab, 1 TAB PO DAILY, TAB 09/19/16 Follow-up Plan Appointment clinic in 2 weeks Primary Care Provider Dora Sandra Time spent on discharge: < 30 minutes ROLANDA HOANG MD Nov 13, 2016 09:37
== END 2016-11-13 13:00 | disposition home or self-care (01) | DRG 775 ==
LOC: OBT 18:22 → L-D 18:23 → OBT 19:16 → PP1 11-11 03:07
PROVIDERS: ADMIT Obstetrics & Gynecology; ATTEND Obstetrics & Gynecology
PROC: 10E0XZZ Delivery of Products of Conception, External Approach (ICD-10-PCS; principal; 2016-11-11)
DX: O80 Encounter for full-term uncomplicated delivery (principal); Z37.0 Single live birth; Z3A.39 39 weeks gestation of pregnancy
CPT/HCPCS: 62319; 85025; 85610; 85730; 86592; 86900; 86901; 87340; 90715; A4310; G0463; J2590; J3010; J7120

== ENCOUNTER 2018-08-09 15:44 | Emergency (ER) | payer OTHER ==
[~2018-08-09] VITALS: Ht 154.9 cm; Wt 109.0 kg
[2018-08-09 15:54] VITALS: Ht 154.9 cm; Wt 109.0 kg
[2018-08-09] MEDS ORDERED: ALBUTEROL 0.083% (NEB) 2.5 MG/3 ML AMP HHN STA (17:06)
[2018-08-09] MEDS ORDERED: predniSONE 20 MG TAB PO ONE (17:30)
[2018-08-09] MEDS ORDERED: ACETAMINOPHEN 325 MG TAB PO ONE (17:30)
[2018-08-09] MEDS ORDERED: PRED20TA PO (18:29)
[2018-08-09] MEDS ORDERED: ALBU18HF INHALATION (18:29)
[2018-08-09] MEDS ORDERED: AZIT250T PO (18:29)
[2018-08-09] MEDS ORDERED: D-ME473S2 PO (18:29)
--- NOTE | 2018-08-09 18:32 | ERD ---
ER Documentation Chief Complaint Chief Complaint pt is bib self with c/o sore throat and congestion since Sunday HPI 32-year-old woman with a 4-day history of cough, wheezing, is minimally productive mucus. Denies chest pain, vomiting, abdominal pain. ROS All systems reviewed and are negative except as per history of present illness. Medications Home Meds Active Scripts Dextromethorphan Hb-Promethazine Hcl* (Promethazine DM* Syrup) 473 Ml Syrup, 5 ML PO Q6 PRN for COUGH for 5 Days, ML Prov:MITALI CARVER MD 08/09/18 Albuterol Sulfate* (Ventolin HFA*) 18 Gm Hfa.aer.ad, 2 PUFF INHALATION Q4H, #1 INHALER Prov:MITALI CARVER MD 08/09/18 Prednisone* (Prednisone*) 20 Mg Tab, 40 MG PO DAILY for 4 Days, TAB Start August 10, 2018 Prov:MITALI CARVER MD 08/09/18 Azithromycin* (Zithromax*) 250 Mg Tablet, 250 MG PO .ZPACK DIRECTED, #6 TAB TAKE 500 MG (2 TABS) THE FIRST DAY THEN 250 MG (1 TAB) DAYS 2-5 Prov:MITALI CARVER MD 08/09/18 Reported Medications Multivit/Min/Fol Ac/Iron/Pren* ( S*) 1 Tab Tab, 1 TAB PO DAILY, TAB 09/19/16 Allergies Allergies: Coded Allergies: No Known Allergy (Verified , 09/19/16) PMhx/Soc History of Surgery: Yes (LEEP PROCEDURE FOR CERVICAL CANCER) Anesthesia Reaction: No Hx Neurological Disorder: No Hx Respiratory Disorders: Yes (ASTHMA) Hx Cardiac Disorders: No Hx Psychiatric Problems: No Hx Miscellaneous Medical Probl: No Hx Alcohol Use: No Hx Substance Use: No Hx Tobacco Use: No Smoking Status: Never smoker FmHx Family History: No diabetes, No coronary disease, No other Physical Exam Vitals Vital Signs Date Temp Pulse Resp B/P (MAP) Pulse Ox O2 O2 Flow FiO2 Time Delivery Rate 08/09/18 98 20 98 21 17:34 08/09/18 99.3 104 20 138/83 98 15:54 (101) Physical Exam Const: No acute distress Head: Atraumatic Eyes: Normal Conjunctiva ENT: Normal External Ears, Nose and Mouth. TMs and oropharynx normal. Neck: Full range of motion. No meningismus. Resp: Clear to auscultation bilaterally. Coarse breath sounds and mild wheezing. No retractions or rales. Cardio: Regular rate and rhythm, no murmurs Abd: Soft, non tender, non distended. Normal bowel sounds Skin: No petechiae or rashes Back: No midline or flank tenderness Ext: No cyanosis, or edema Neur: Awake and alert Psych: Normal Mood and Affect Results 24 hrs Current Medications Medications Dose Sig/Anuj Start Time Status Last (Trade) Ordered Route PRN Stop Time Admin Dose Reason Admin Prednisone 40 mg ONCE ONCE 08/09/18 DC 08/09/18 (Prednisone) PO 17:30 08/09/18 17:11 17:31 Albuterol 5 mg ONCE STAT 08/09/18 DC 08/09/18 (Proventil HHN 17:06 08/09/18 17:33 0.083% (Neb)) 17:07 650 mg ONCE ONCE 08/09/18 DC 08/09/18 Acetaminophen PO 17:30 08/09/18 17:11 (Tylenol 17:31 Tab) Procedures/MDM Patient presents for a history of coughing, wheezing, body aches productive mucus. She may have a lingering viral illness given the duration and productive cough we will treat empirically with Ventolin, prednisone, Zithromax, primary care follow-up and return precautions. She was given albuterol treatment and prednisone here in the ED. She has no signs of hypoxemia, rest or distress, pneumonia on exam. The patient was stable with no new complaints during the ER course. Clinically, there is no current evidence to suggest meningitis, sepsis, acute abdomen, pneumonia, stroke, acute coronary syndrome, pulmonary embolism, aortic dissection or any other emergent condition appearing to require further evaluation or hospitalization. Patient counseled regarding my diagnostic impre ssion and care plan. Prior to discharge all questions answered. Pt agrees with treatment plan and understands strict return precautions. Pt is instructed to follow up with primary care provider within 24-48 hours. Precautionary instructions provided including instructions to return to the ER if not improving or for any worsening or changing symptoms or concerns. Departure Diagnosis: Primary Impression: URI, acute Condition: Stable Patient Instructions: Bronchitis With Wheezing (Adult) Additional Instructions: Recheck for new or worsening symptoms with primary care doctor. TEEHEE,MITALI N. MD Aug 09, 2018 18:32
[2018-08-09 18:47] VITALS: BP 145/77; PULSE 117; RESP 23
== END 2018-08-09 18:48 | disposition home or self-care (01) ==
LOC: FTE 15:44
DX: J06.9 Acute upper respiratory infection, unspecified (principal); J45.901 Unspecified asthma with (acute) exacerbation; Z85.41 Personal history of malignant neoplasm of cervix uteri
CPT/HCPCS: 94664; J7512; Z7502; Z7610